=== PATIENT | male | born 1960 | race Caucasian/White ===

== ENCOUNTER 2017-07-29 16:56 | Emergency (ER) | payer OTHER ==
[2017-07-29 17:01] VITALS: TEMP 97.4; BMI 23.6
--- NOTE | 2017-07-29 19:10 | ED.PDOC ---
General ED Provider: Dr. MERVIN ZAPATA Chief Complaint: Nose Injury Stated Complaint: patient states that he feels like there is somthing in his right nares. Not sure what it is. he states he tried to pull it out but was unsucessfull. Has a history of HTN but states that the last blood pressure medication made him feel so he stopped taking. Time Seen by Physician: 19:08 Mode of Arrival: Walk-In Information Source: Patient Exam Limitations: No limitations Primary Care Provider: HARVEY RAMOS Nursing and Triage Documentation Reviewed and Agree: Yes Reviewed sepsis parameters & appropriate labs ordered?: No System Inflammatory Response Syndrome: Not Applicable Sepsis Protocol: For patient's 13 years and over: Temp is 96.8 and below OR 101 and greater Pulse >90 BPM Resp >20/minute Acutely Altered Mental Status Are patient's symptoms suggestive of a new infection, such as: -Pneumonia -Skin, Soft Tissue -Endocarditis -UTI -Bone, Joint Infection -Implantable Device -Acute Abdominal Infection -Wound Infection -Meningitis -Blood Stream Catheter Infection -Unknown System Inflammatory Response Syndrome: Not Applicable EENT Complaint Exam - Nasal Complaint/Exam Onset/Duration: 1 DAY Symptoms Are: Still present Timing: Constant Associated Signs and Symptoms: Reports: Nasal congestion (SWOLLEN NASAL TURBINATES RIGHT > LEFT ). Denies: Bruising, Hematuria, Hematochezia, Sinus pain, Nasal discharge, Foreign body, Abnormal coags - Dental/Oral Complaint/Exam Mechanism of Injury: No known trauma Initial Severity: None Current Severity: None Cardiac Risk Factors: Reports: None Tooth Findings: Present: Gross decay, Gross caries, Abcess Oropharynx Findings: Absent: Clots, Active bleeding Septal Hematoma: No Foreign Body Present: No Dysphagia Present: No Drooling Present: No Asymmetrical Tonsillar Swelling Present: No Uvula Midline: No Sussy-tonsillar Fluctuence: No Trismus Present: No Palatal Petechiae Present: No Scarlatinaform Rash Present: No Lesions: Present: Gums Exanthem: Present: Gums Differential Diagnoses: Dental Abcess, Dental Caries, Fractured Tooth, Gingivitis Review of Systems - Review Of Systems Constitutional: Reports: No symptoms Eyes: Reports: No symptoms Ears, Nose, Mouth, Throat: Reports: Nose pain (feeling of foriegn body in right nares. ) Respiratory: Reports: No symptoms Cardiac: Reports: No symptoms GI: Reports: No symptoms : Reports: No symptoms Musculoskeletal: Reports: No symptoms Skin: Reports: No symptoms Neurological: Reports: No symptoms Endocrine: Reports: No symptoms Hematologic/Lymphatic: Reports: No symptoms All Other Systems: Reviewed and Negative Past Medical History - Past Medical History Previously Healthy: Yes Endocrine: Reports: None Cardiovascular: Reports: Hypertension, Angina Respiratory: Reports: None Hematological: Reports: None Gastrointestinal: Reports: None Genitourinary: Reports: None Neuro/Psych: Reports: Anxiety Musculoskeletal: Reports: None Cancer: Reports: None Other Pertinent Past Medical History: stress - Surgical History General Surgical History: Reports: Unknown - Family History Family History: Reports: Unknown - Social History Smoking Status: Current every day smoker, Light tobacco smoker Hx Substance Use: No Alcohol Screening: Occasionally Physical Exam - Physical Exam Appearance: Well-appearing, No pain distress, Well-nourished Eyes: DRE, EOMI, Conjunctiva clear ENT: Ears normal, Nose normal, Oropharynx normal Neck: Supple Respiratory: Airway patent, Breath sounds clear, Breath sounds equal, Respirations nonlabored Cardiovascular: RRR, Pulses normal, No rub, No murmur GI/: Soft, Nontender, No masses, Bowel sounds normal, No Organomegaly Musculoskeletal: Normal strength, ROM intact, No edema, No calf tenderness Skin: Warm, Dry, Normal color Neurological: Sensation intact, Motor intact, Reflexes intact, Cranial nerves intact, Alert, Oriented Psychiatric: Affect appropriate, Mood appropriate Re-Evaluation - Re-Evaluation Vital Signs Stable: No (183/87) Critical Care Note - Critical Care Note Total Time (mins): 0 Course - Course Vital Signs: Temp Pulse Resp BP Pulse Ox 07/29/17 16:56 97.4 F L 76 18 228/128 H 97 Departure - Departure Time of Disposition: 19:08 Disposition: HOME SELF-CARE Discharge Problem: Dental caries Allergic rhinitis Qualifiers: Allergic rhinitis trigger: unspecified Allergic rhinitis seasonality: seasonal Qualified Code(s): J30.2 - Other seasonal allergic rhinitis Instructions: Gingivitis (ED), Allergic Rhinitis (ED) Condition: Stable Pt referred to PMD for follow-up: Yes IPMP verified?: No Additional Instructions: Use over the counter, Flonase Nasal spry once a day or [place] saline spray to each nostril 5 times a day daily Follow up wit PCP or get establish with the clinic in 2 days May also use claritin or humera as needed for allergies. FOLLOW UP WITH YOUR DENTIST Prescriptions: Amoxicillin [Amoxil] 500 mg PO TID #30 capsule Allergies/Adverse Reactions: Allergies No Known Allergies Allergy (Verified 07/29/17 17:01) Home Medications: Ambulatory Orders Amoxicillin [Amoxil] 500 mg PO TID #30 capsule 07/29/17 Disposition Discussed With: Patient
[2017-07-29 19:21] VITALS: BP 183/87
== END 2017-07-29 19:27 | disposition home or self-care (01) ==
LOC: ED 16:56
DX: J30.2 Other seasonal allergic rhinitis (principal); K02.7 Dental root caries; I10 Essential (primary) hypertension; Z91.14 Patient's other noncompliance with medication regimen; F17.210 Nicotine dependence, cigarettes, uncomplicated
CPT/HCPCS: 99282

== ENCOUNTER 2018-06-22 09:28 | Inpatient (IN) | payer OTHER ==
[2018-06-22] MEDS ORDERED: CARDENE-NACL 20 MG/200 ML SOLN 200 ML IV ONE ×3 (09:55→17:31)
[2018-06-22] MEDS: CARDENE-NACL 20 MG/200 ML SOLN 20 MG in PREMIX 200ML 0.86% SODIUM CHLORIDE 1 BAG IV SCH ×4 (10:10→17:32)
--- NOTE | 2018-06-22 10:22 | CT ---
EXAM: CT BRAIN HISTORY: Head pain, confusion TECHNIQUE: CT brain without intravenous contrast. 5-mm axial sections with Reformations. COMPARISON: None FINDINGS: There is mild generalized atrophy. There are several chronic lacunar infarctions in the basal gangli a as well as at least one within the right thalamus. Brain otherwise is unremarkable without evidence of hemorrhage or large vessel distribution recent is chemic infarction. There is no suggestion of acute hydrocephalus or subdural fluid collection. No m ass or mass effect. Cranium has no acute finding. Mastoid processes are aerated. The visualized paranasal sinuses revea l mild mucosal thickening at least in the right maxillary cell. IMPRESSION: 1. No acute intracranial process. Old lacunar infarctions. 2. There is at least mild chronic paranasal sinusitis.
--- NOTE | 2018-06-22 10:51 | ED.PDOC ---
General ED Provider: Dr. MARIA G COREY Chief Complaint: Hypertension Stated Complaint: brought to ear for high blood pressure no c/p some head ache . was brought here by his mental health worker . Time Seen by Physician: 09:20 Mode of Arrival: Walk-In Information Source: Patient Exam Limitations: No limitations Primary Care Provider: HARVEY RAMOS Nursing and Triage Documentation Reviewed and Agree: Yes Does patient meet sepsis criteria?: No If yes, has appropriate treatment been initiated?: No System Inflammatory Response Syndrome: Not Applicable Sepsis Protocol: For patient's 13 years and over: Temp is 96.8 and below OR 101 and greater Pulse >90 BPM Resp >20/minute Acutely Altered Mental Status Are patient's symptoms suggestive of a new infection, such as: -Pneumonia -Skin, Soft Tissue -Endocarditis -UTI -Bone, Joint Infection -Implantable Device -Acute Abdominal Infection -Wound Infection -Meningitis -Blood Stream Catheter Infection -Unknown Review of Systems - Review Of Systems Constitutional: Reports: No symptoms Eyes: Reports: No symptoms Ears, Nose, Mouth, Throat: Reports: No symptoms Respiratory: Reports: No symptoms Cardiac: Reports: No symptoms GI: Reports: No symptoms : Reports: No symptoms Musculoskeletal: Reports: No symptoms Skin: Reports: No symptoms Neurological: Reports: No symptoms Endocrine: Reports: No symptoms Hematologic/Lymphatic: Reports: No symptoms All Other Systems: Reviewed and Negative Past Medical History - Past Medical History Previously Healthy: Yes Endocrine: Reports: None Cardiovascular: Reports: Hypertension, Angina Respiratory: Reports: None Hematological: Reports: None Gastrointestinal: Reports: None Genitourinary: Reports: None Neuro/Psych: Reports: Anxiety Musculoskeletal: Reports: None Cancer: Reports: None Other Pertinent Past Medical History: stress - Surgical History General Surgical History: Reports: Unknown - Family History Family History: Reports: Unknown - Social History Smoking Status: Current every day smoker, Light tobacco smoker Hx Substance Use: No Alcohol Screening: Occasionally Physical Exam - Physical Exam Appearance: Well-appearing, No pain distress, Well-nourished Eyes: DRE, EOMI, Conjunctiva clear ENT: Ears normal, Nose normal, Oropharynx normal Respiratory: Airway patent, Breath sounds clear, Breath sounds equal, Respirations nonlabored Cardiovascular: RRR, Pulses normal, No rub, No murmur GI/: Soft, Nontender, No masses, Bowel sounds normal, No Organomegaly Musculoskeletal: Normal strength, ROM intact, No edema, No calf tenderness Skin: Warm, Dry, Normal color Neurological: Sensation intact, Motor intact, Reflexes intact, Cranial nerves intact, Alert, Oriented Psychiatric: Affect appropriate, Mood appropriate Interpretation - Radiology Interpretation Radiology Interpretation By: Radiologist Radiology Results: No acute changes Exam Interpreted: CT Scan - Manager Gallery Rate: Normal Rhythm: Sinus Ectopy: None - EKG Interpretation Rate: Normal Rhythm: Sinus Ectopy: None Re-Evaluation - Re-Evaluation Time of Re-Evaluation: 10:53 Status: Improved Vital Signs Stable: Yes Pain Level: 0 Appearance: NAD Lungs: Clear Skin: Warm and Dry Neuro: Alert and Oriented X3 CV: RRR Additional Comments: blood pressured decreased 10% of systolic mean presentyl 177 /earlier 153 Critical Care Note - Critical Care Note Total Time (mins): 0 Course - Course Hematology/Chemistry: 06/22/18 09:50 06/22/18 09:50 Orders, Labs, Meds: Lab Review 06/22/18 06/22/18 06/22/18 09:50 09:50 09:50 WBC 9.22 RBC 5.14 Hgb 13.7 L Hct 41.9 L MCV 81.5 MCH 26.7 L MCHC 32.7 RDW Coeff of Luis 14.0 Plt Count 196 Immature Gran % (Auto) 0.3 Neut % (Auto) 66.6 Lymph % (Auto) 22.9 [place] % (Auto) 8.5 Eos % (Auto) 1.5 Baso % (Auto) 0.2 Immature Gran # (Auto) 0.0 Neut # (Auto) 6.1 Lymph # (Auto) 2.1 [place] # (Auto) 0.8 Eos # (Auto) 0.1 Baso # (Auto) 0.0 PT 9.4 INR 0.94 APTT 27.1 Sodium 140.0 Potassium 3.76 Chloride 101.4 Carbon Dioxide 32.2 H Anion Gap 10.16 BUN 7.0 L Creatinine 0.87 Estimated GFR (MDRD) 90.00 BUN/Creatinine Ratio 8.04 Glucose 86.0 Calcium 8.84 Total Bilirubin 0.30 AST 16.7 L ALT 11.5 Alkaline Phosphatase 108.6 Total Creatine Kinase 45.2 L Troponin I 0.022 Total Protein 7.36 Albumin 4.02 Globulin 3.34 Albumin/Globulin Ratio 1.20 Urine Color Urine Clarity Urine pH Ur Specific [place] Urine Protein Urine Glucose (UA) Urine Ketones Urine Blood Urine Nitrite Urine Bilirubin Urine Urobilinogen Ur Leukocyte Esterase 06/22/18 10:15 WBC RBC Hgb Hct MCV MCH MCHC RDW Coeff of Luis Plt Count Immature Gran % (Auto) Neut % (Auto) Lymph % (Auto) [place] % (Auto) Eos % (Auto) Baso % (Auto) Immature Gran # (Auto) Neut # (Auto) Lymph # (Auto) [place] # (Auto) Eos # (Auto) Baso # (Auto) PT INR APTT Sodium Potassium Chloride Carbon Dioxide Anion Gap BUN Creatinine Estimated GFR (MDRD) BUN/Creatinine Ratio Glucose Calcium Total Bilirubin AST ALT Alkaline Phosphatase Total Creatine Kinase Troponin I Total Protein Albumin Globulin Albumin/Globulin Ratio Urine Color Yellow Urine Clarity Clear Urine pH 5.5 Ur Specific [place] 1.015 Urine Protein Negative Urine Glucose (UA) Negative Urine Ketones Negative Urine Blood Negative Urine Nitrite Negative Urine Bilirubin Negative Urine Urobilinogen 0.2 Ur Leukocyte Esterase Negative Orders Category Date Time Status EKG-(ED ONLY) Stat CARDIO 06/22/18 09:40 Ordered ED IV/MEDIPORT/POWERPORT .ONCE EMERGENCY 06/22/18 09:40 Active CBC W/ AUTO DIFF Stat LAB 06/22/18 09:39 Ordered COMPREHENSIVE METABOLIC PANEL Stat LAB 06/22/18 09:50 Completed CREATINE KINASE Stat LAB 06/22/18 09:40 Ordered PARTIAL THROMBOPLASTIN TIME Stat LAB 06/22/18 09:40 Ordered PT WITH INR Stat LAB 06/22/18 09:40 Ordered TROPONIN I Stat LAB 06/22/18 09:40 Ordered URINALYSIS C & S IF INDICATED Stat LAB 06/22/18 09:40 Uncollected 0.9 % Sodium Chloride [Saline Flush] MEDS 06/22/18 09:41 Ordered 1 syr IVF PRN PRN [id number] MG in 0.86% SODIUM CHLORIDE @ 5 MG/HR( MEDS 06/22/18 10:00 Ordered 200ml) 0.9 % Sodium Chloride [Premix 200Ml 0.86% Sodium Chloride] 1 bag Nicardipine in NaCl, Iso-Osm [Cardene-NaCl 20 mg/200 ml Soln] 20 mg IV 5 mg/hr Nicardipine in NaCl, Iso-Osm [Cardene-NaCl 20 mg/200 ml MEDS 06/22/18 09:55 Discontinued Soln] 200 ml IV .STK-MED CT HEAD W/O CONTRAST Stat RADS 06/22/18 09:43 Ordered Medications Generic Name Dose Route Start Last Admin Trade Name Freq PRN Reason Stop Dose Admin Nicardipine/Sodium Chloride 20 200 mls @ 50 mls/hr 06/22/18 10:00 06/22/18 10 :10 mg/ Sodium Chloride IV 5 mg/hr .Q4H [place] 50 mls/hr Administration Protocol 5 MG/HR Sodium Chloride 1 syr 06/22/18 09:41 Saline Flush IVF PRN PRN To flush IV Vital Signs: Temp Pulse Resp BP Pulse Ox 06/22/18 10:44 153/73 H 06/22/18 10:26 178/82 H 06/22/18 10:19 191/89 H 06/22/18 09:28 98.3 F 67 18 240/82 H 98 BLAIR Risk Score BLAIR Risk Score: Risk Score Odds of by 30D 0 0.1 (0.1-0.2) 1 0.3 (0.2-0.3) 2 0.4 (0.3-0.5) 3 0.7 (0.6-0.9) 4 1.2 (1.0-1.5) 5 2.2 (1.9-2.6) 6 3.0 (2.5-3.6) 7 4.8 (3.8-6.1) Departure - Departure Time of Disposition: 10:55 Disposition: ADMITTED INPATIENT Discharge Problem: Hypertensive urgency Instructions: Hypertensive Crisis (ED) Condition: Good Pt referred to PMD for follow-up: Yes IPMP verified?: No Additional Instructions: Please call your Family Physician as soon as possible to schedule a follow-up appointment. Allergies/Adverse Reactions: Allergies No Known Allergies Allergy (Verified 06/22/18 09:34) Home Medications: Ambulatory Orders 1 [No Reported Medications] 06/22/18
[2018-06-22] MEDS ORDERED: SODIUM CHLORIDE 1,000 ML IV SCH ×2 (11:00→13:00)
[2018-06-22 12:00] VITALS: BMI 24.0
[2018-06-22] MEDS ORDERED: HYDROCHLOROTHIAZIDE PO STA (12:14)
[2018-06-22] MEDS ORDERED: ZESTRIL PO STA (12:14)
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
[2018-06-22] MEDS: COREG PO SCH (17:32)
[2018-06-22] MEDS: LOVENOX SUBCUT SCH (17:33)
[2018-06-22] MEDS ORDERED: ASPIRIN CHEWABLE ONE (17:47)
[2018-06-22] MEDS: ASPIRIN EC PO SCH (17:50)
[2018-06-23] MEDS ORDERED: CARDENE-NACL 20 MG/200 ML SOLN 200 ML IV ONE (02:20)
[2018-06-23] MEDS: CARDENE-NACL 20 MG/200 ML SOLN 20 MG in PREMIX 200ML 0.86% SODIUM CHLORIDE 1 BAG IV SCH ×4 (02:22→11:12)
[2018-06-23] MEDS: LOVENOX SUBCUT SCH (08:54)
[2018-06-23] MEDS: COREG PO SCH (08:54)
[2018-06-23] MEDS: ASPIRIN EC PO SCH (08:56)
[2018-06-23] MEDS ORDERED: ZESTRIL PO SCH (09:00)
[2018-06-23] MEDS ORDERED: HYDROCHLOROTHIAZIDE PO SCH (09:00)
[2018-06-23 12:36] VITALS: TEMP 97.7
[2018-06-23 13:21] VITALS: BP 175/86
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
== END 2018-06-23 14:21 | disposition home or self-care (01) | DRG 305 ==
LOC: ED 09:28 → MEDSURG B 10:57 → SCU 10:58
PROVIDERS: ADMIT Family Medicine; ATTEND Family Medicine
DX: I10 Essential (primary) hypertension (principal); R51 Headache; E78.5 Hyperlipidemia, unspecified; F12.10 Cannabis abuse, uncomplicated; Z91.19 Patient's noncompliance with other medical treatment and regimen; Z72.0 Tobacco use
CPT/HCPCS: 36415; 80053; 80061; 80306; 81001; 82550; 82962; 84443; 84484; 85025; 85610; 85730; 93005; 93010; 96365; 99284